=== PATIENT | male | born 1955 | race Caucasian/White ===

== ENCOUNTER 2023-10-11 11:50 | Emergency (ER) | payer MEDICARE, SELFPAY ==
--- NOTE | ~2023-10-11 | XR_ITS ---
EXAMINATION: XR chest 2V DATE: 10/11/2023 12:54 INDICATION: Shortness of breath. TECHNIQUE: Frontal and lateral views of the chest were obtained. COMPARISON: None. FINDINGS: There are lucencies in the lungs, consistent with emphysema. There are heterogeneous airspa ce opacities involving all lung zones bilaterally. There are small pleural effusions. No pneumothorax . The heart size is normal. IMPRESSION: 1. Diffuse lung disease, consistent with pneumonia and/or scarring superimposed on emphysema. 2. Small pleural effusions. Reviewed, dictated and finalized at location A.
--- NOTE | ~2023-10-11 | CT_ITS ---
EXAMINATION: CTA chest PE protocol DATE: 10/11/2023 13:21 INDICATION: Hypoxia. TECHNIQUE: Computed tomography angiography (CTA) of the chest was performed with 100 mL Omnipaque-350 intravenous contrast timed to evaluate the pulmonary arteries. Coronal maximum intensity projection 3D-reconstructions were created by the technologist. Automated exposure control and iterative reconst ruction technique were employed. The dose-length product was 290.40 mGy-cm. COMPARISON: Chest 2 views 10/11/2023 FINDINGS: There is severe emphysema. There is a moderate-sized loculated right pleural effusion. Ther e is a small left pleural effusion. There are patchy airspace opacities in all lobes with some areas of cavitation. Calcified pulmonary nodules and calcified hilar and mediastinal lymph nodes are consis tent with old granulomatous disease. The heart size is normal. No pericardial effusion. There is thro mbosis of pulmonary arteries in the upper lobes. There are sclerotic lesions in T1, T4, T5, and T7 ve rtebral bodies. There is an old healed left rib fracture. IMPRESSION: 1. Multifocal lung disease, consistent with necrotizing pneumonia. 2. Severe emphysema. 3. Moderate-sized loculated right pleural effusion. Small left pleural effusion. 4. Thrombosis of pulmonary arteries in the upper lobes in areas involvement by pneumonia, which may b e in situ thrombosis or less likely pulmonary emboli. 5. Sclerotic lesions of bone, consistent with metastatic disease. Reviewed, dictated and finalized at location A. IMPRESSION: 1. Multifocal lung disease, consistent with necrotizing pneumonia. 2. Severe emphysema. 3. Moderate-sized loculated right pleural effusion. Small left pleural effusion . 4. Thrombosis of pulmonary arteries in the upper lobes in areas involvement by pneumonia, which may be in situ thrombosis or less likely pulmonary emboli. 5. Sclerotic lesions of bone, consistent with metastatic disease.
[2023-10-11 11:48] VITALS: BP 126/77; PULSE 92; RESP 30; TEMP 36.8; O2SAT 93
--- NOTE | 2023-10-11 12:03 | ECG_ITS ---
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 Measurements Intervals [place] Rate: 91 P: 73 WA: 121 QRS: 87 QRSD: 97 T: 195 QT: 405 QTc: 500 Interpretive Statements SINUS RHYTHM ST DEVIATION AND MARKED T-WAVE ABNORMALITY, CONSIDER LATERAL ISCHEMIA [-0.5+ mV T WAVE IN I/aVL/V5/V6] ST DEVIATION AND MODERATE T-WAVE ABNORMALITY, CONSIDER INFERIOR ISCHEMIA [-0.1+ mV T WAVE IN II/aVF] No previous ECG available for comparison Electronically Signed On 10-11-2023 14:16:22 CDT by Curt Toledo M.D.
--- NOTE | 2023-10-11 12:06 | ED.SOB ---
HPI - SOB/Dyspnea General Chief Complaint: Shortness of Breath/Dyspnea Stated Complaint: SOB Time Seen by Provider: 10/11/23 12:00 Source: patient and EMS Mode of arrival: EMS Limitations: no limitations History of Present Illness HPI Narrative: Patient presents with shortness of breath. He states he experiences is chronically for non especially after he takes his pills. He has a history of COPD. He states the trilogy the is on helps. He denies needing any medication refills. He denies any chest pain. It is reported the patient was cyanotic, saturating 79-80% on his baseline 4 liters/minute via nasal cannula. EMS administered magnesium, albuterol, Solu-Medrol and placed him on BiPAP initially. Patient denies any cough. He does note the occasionally feels fevers or diaphoretic in the middle the night but attributed this to sleeping underlying for blankets. He denies any lower extremity edema. He is a former smoker who states he quit a few weeks ago after 50 years smoking. Patient states he has not complaints at present other than wanting a cold beer. Related Data Home Medications Medication Instructions Recorded Confirmed aspirin 81 mg tablet,delayed 81 mg PO DAILY 10/11/23 release azithromycin 250 mg tablet mg 10/11/23 bisacodyl 10 mg rectal suppository 10 mg RECTAL DAILY PRN Constipation 10/11/23 dapagliflozin propanediol 10 mg 10 mg PO DAILY 10/11/23 tablet dutasteride 0.5 mg capsule mg PO 10/11/23 escitalopram oxalate 20 mg tablet mg 10/11/23 ethambutol 400 mg tablet PO 10/11/23 fluticasone fur. 100 mcg-umeclid 1 inh inhalation DAILY 10/11/23 10/11/23 62.5 mcg-vilant 25 mcg inhalat.powder (Trelegy Ellipta) hydroxyzine HCl 25 mg tablet mg PRN Itching 10/11/23 magnesium citrate (Citroma oral 300 ml PO DAILY PRN Constipation 10/11/23 solution) magnesium hydroxide 400 mg/5 mL 30 ml PO HS PRN Constipation 10/11/23 oral suspension (Milk of Magnesia) magnesium oxide 400 mg (241.3 mg mg PO 10/11/23 10/11/23 magnesium) tablet megestrol 20 mg tablet mg TID 10/11/23 prednisone 5 mg tablet mg 10/11/23 rifampin 300 mg capsule 600 mg 10/11/23 rosuvastatin 10 mg tablet 10 mg 10/11/23 sodium phosphates 19 gram-7 197 ml RECTAL ONCE PRN Constipation 10/11/23 gram/118 mL enema (Fleet Enema) tamsulosin 0.4 mg capsule 0.8 mg PO DAILY 10/11/23 Allergies Allergy/AdvReac Type Severity Reaction Status Date / Time No Known Allergies Allergy Verified 10/11/23 12:25 [facility] Past Medical History Medical History (Updated 10/12/23 @ 00:00 by Chaitanya Silverman) Acute respiratory failure with hypoxia Benign prostatic hyperplasia with lower urinary tract symptoms Body mass index [BMI] 19.9 or less, adult Calculus of gallbladder without cholecystitis without obstruction Cardiogenic shock Chronic combined systolic (congestive) and diastolic (congestive) heart failure Chronic cough Combined forms of age-related cataract of left eye Complete loss of teeth, unspecified cause, unspecified class COPD (chronic obstructive pulmonary disease) Dependence on supplemental oxygen Essential (primary) hypertension Hypo-osmolality and hyponatremia intermediate current use of anticoagulant only ASA listed on med list Mycobacterial infection, unspecified Myocardial infarction type 2 Nicotine dependence, cigarettes, uncomplicated Non-STEMI (non-ST elevated myocardial infarction) Other disorders of lung Other forms of dyspnea Other stimulant use, unspecified, uncomplicated Spondylolisthesis, lumbar region Type 1 diabetes mellitus with unspecified complications Unspecified protein-calorie malnutrition Ventricular tachycardia, unspecified Social History Social History (Updated 10/11/23 @ 12:24 by Elisa Blount MD) Social History: Documentation lists No CPR/DNR as code status with selective treatment (primary goal to treat medical conditions with limited medical measures). Years smoked: 50 Smoking status: Former sm
[2023-10-11 12:16] LABS: Alveolar/Arterial O2 Gradient 171.5 mmHg; Base Excess ABG -0.1 mEq/l (+/-2.0); Fractional Inspired Oxygen 36 %; HCO3 ABG 22.3 mEq/l (22.0-26.0); Oxygen Content ABG 16.1 %vol (16.0-22.0); Oxygen Saturation ABG 89.1 % (95.0-100.0); PCO2 ABG 29.9 mmHg (35.0-45.0); PO2 ABG 50.5 mmHg (80.0-100.0); Total Hemoglobin 13.3 g/dL (12.0-18.0)
[2023-10-11 12:20] VITALS: PULSE 92; PULSE 95; RESP 21; O2SAT 92
[2023-10-11 12:20] LABS: Device NASAL CANNULA; Modified Allen's Test Pass; Oxyhemoglobin 86.1 % THb (90.0-100.0); Site Drawn RIGHT RADIAL
[2023-10-11] MEDS: IPRATROPIUM 0.5 MG/ALBUTEROL SULFATE 2.5 MG AMPUL.NEB 3 ML INHALATION (12:25)
[2023-10-11 12:30] VITALS: PULSE 95; RESP 26
[2023-10-11] MEDS: Please add drug allergy info to patient profile. 1 EACH XX (12:31)
[2023-10-11 12:34] LABS: Basophils Percent Auto 0.7 % (0.2-1.2); Eosinophils Absolute Auto 0.1 K/mm3 (0-0.3); Eosinophils Percent Auto 0.9 % (0-4.4); Hemoglobin 13.3 g/dL (14.0-18.0); Immature Granulocyte Absolute 0.02 K/mm3 (0.00-0.031); Immature Granulocyte Percent A 0.4 % (0-0.5); Lymphocytes Absolute Auto 1.16 K/mm3 (0.9-3.2); Lymphocytes Percent Auto 20.8 % (18.3-44.2); Mean Corpuscular HGB Conc 34.1 g/dl (32-36); Mean Corpuscular Hemoglobin 33.3 pg (26-34); Mean Corpuscular Volume 97.5 fl (80-100); Mean Platelet Volume 9.3 fl (7.4-10.4); Monocytes Absolute Auto 0.5 K/mm3 (0.1-0.6); Monocytes Percent Auto 8.6 % (2.6-8.5); Neutrophils Absolute Auto 3.8 K/mm3 (1.3-6.7); Neutrophils Percent Auto 68.6 % (45.5-73.1); Platelet Count Result 274 k/mm3 (150-375); Red Cell Distribution Width 14.4 % (11.5-14.5); White Blood Count 5.6 K/mm3 (4.5-10.0)
[2023-10-11 12:43] LABS: Alanine Aminotransferase 21 U/L (6-50); Albumin Level 4.2 g/dL (3.5-5.1); Alkaline Phosphatase 83 U/L (38-126); Anion Gap 6 mmol/L (4-12); Aspartate Amino Transferase 32 U/L (17-59); Bilirubin,Total 0.7 mg/dL (0.2-1.3); Blood Urea Nitrogen 9 mg/dL (9-20); Calcium 8.9 mg/dL (8.4-10.2); Carbon Dioxide 26 mmol/L (22-30); Chloride 98 mmol/L (98-107); Estimated CRCL calculation 116 ml/min; Estimated Glomerular Filt Rate > 60; Glucose 113 mg/dL (65-110); Magnesium 2.9 mg/dL (1.6-2.3); Sodium 130 mmol/L (137-145)
[2023-10-11 12:50] LABS: Prothrombin Time 13.4 Seconds (11.1-14.7)
[2023-10-11 12:52] LABS: Partial Thromboplastin Time 27.6 Seconds (22.3-36.8)
[2023-10-11 12:54] LABS: Troponin I 0.024 ng/mL (0.000-0.034)
[2023-10-11 13:03] LABS: D Dimer 1.22 ug/mL (<0.48)
[2023-10-11 13:10] LABS: Influenza A QL RT-PCR Negative (Negative); Influenza B QL RT-PCR Negative (Negative); RSV RNA, RT-PCR Negative (Negative); SARS-CoV-2 RNA PCR Negative (Negative)
[2023-10-11] MEDS: PIPERACILLIN/TAZ 4.5G/NS 100ML 4.5 GM/100 ML BAG IVPB (14:45)
[2023-10-11] MEDS: levoFLOXacin 500 MG/D5W 100 ML 500 MG/100 ML BAG 100 MG IVPB (15:16)
[2023-10-11 15:33] VITALS: BP 110/69; PULSE 90; RESP 30; O2SAT 95
[2023-10-11 16:00] LABS: MRSA (PCR) NOT DETECTED (NOT DETECTE)
[2023-10-11] MEDS: VANCOMYCIN 1,500 MG/NS 500 ML 1,500 MG/500 ML BAG 250 MG IVPB (16:14)
[2023-10-11 16:38] VITALS: BP 114/71; PULSE 91; RESP 24; O2SAT 92
--- NOTE | 2023-10-11 16:49 | PC.NURSE ---
Accepted at [facility] 280* Accepted by Dr Nair
--- NOTE | 2023-10-11 16:58 | PC.NURSE ---
Attempted report X2 to [facility].
== END 2023-10-11 17:47 | disposition short-term general hospital (02) ==
LOC: ANHED 12:20
PROVIDERS: Emergency Provider Student in an Organized Health Care Education/Training Program
DX: R06.03 Acute respiratory distress (principal); D64.9 Anemia, unspecified; E87.1 Hypo-osmolality and hyponatremia; J85.0 Gangrene and necrosis of lung; J43.9 Emphysema, unspecified; J90 Pleural effusion, not elsewhere classified; M89.8X9 Other specified disorders of bone, unspecified site; Z79.82 Long term (current) use of aspirin; Z79.01 Long term (current) use of anticoagulants; I50.42 Chronic combined systolic (congestive) and diastolic (congestive) heart failure; E10.9 Type 1 diabetes mellitus without complications; I11.0 Hypertensive heart disease with heart failure; Z99.81 Dependence on supplemental oxygen; Z87.891 Personal history of nicotine dependence
CPT/HCPCS: 36415; 36600; 71046; 71275; 80053; 82805; 83735; 84484; 85025; 85380; 85610; 85730; 87040; 87637; 87641; 93005; 94640; 96365; 96367; 99285; J1956; J2543; J3370; Q9967